=== PATIENT | male | born 1955 | race Caucasian/White ===

== ENCOUNTER 2022-07-20 14:42 | Emergency (ER) | payer MEDICARE, OTHER ==
[~2022-07-20] VITALS: Ht 172.7 cm; Wt 73.0 kg
[~2022-07-20 14:42] MED LIST: ASPI-325 PO; ATOR20TA50 PO; BENA10TA15 PO; CAR3125T PO; CIPR-173 PO; EMPA1TAB PO
[2022-07-20 15:43] VITALS: BP 145/62
[2022-07-20 15:53] LABS: Basophils # (auto) 0.1 10 ^3/uL (0-0.2); Basophils % (auto) 0.6 % (0.0-2.0); Eosinophils # (auto) 0.2 10 ^3/uL (0-0.8); Eosinophils % (auto) 2.3 % (0.0-7.0); Hematocrit 34.5 % (41.0-53.0); Hemoglobin 11.4 g/dL (13.5-17.5); Lymphocytes # (auto) 0.8 10 ^3/uL (0.4-5.4); Lymphocytes % (auto) 9.2 % (10.0-50.0); Mean Corpuscular Hemoglobin 29.8 pg (28.0-32.0); Mean Corpuscular Volume 90.2 fL (80.0-100.0); Monocytes # (auto) 0.6 10 ^3/uL (0-1.3); Monocytes % (auto) 7.1 % (0.0-12.0); Neutrophils # (auto) 7.3 10 ^3/uL (1.6-8.6); Neutrophils % (auto) 80.8 % (37.0-80.0); Nucleated Red Blood Cells % 0.1 %; Red Blood Cells 3.83 10^6/uL (4.5-5.90); Red Cell Distribution Width 16.8 % (11.8-14.3)
[2022-07-20 16:08] LABS: Albumin 3.4 g/dL (3.4-5.0); Calcium 9.1 mg/dL (8.5-10.1); Potassium 4.2 mmol/L (3.5-5.1)
[2022-07-20 16:11] LABS: BUN/Creatinine Ratio 18.5; Total Protein 6.6 g/dL (6.4-8.2)
[2022-07-20] MEDS ORDERED: NITROGLYCERIN 0.4 MG SL TAB SL ONE (17:30)
[2022-07-20] MEDS ORDERED: ENOXAPARIN SOD 80 MG/0.8ML SYRINGE SC ONE (17:30)
[2022-07-20] MEDS ORDERED: FUROSEMIDE 40 MG/4 ML VIAL IV ONE (17:30)
[2022-07-20 17:51] LABS: Urine Specific Gravity 1.033 (1.001-1.035)
[2022-07-20 17:52] LABS: Urine Blood 1+ /uL (Negative)
[2022-07-20] MEDS ORDERED: DEXTROSE (50%) 50ML SYRG IV PRN (19:30)
[2022-07-20] MEDS ORDERED: IOHEXOL 350 MG/ML 100ML IJ ONE (19:30)
[2022-07-20 20:02] LABS: Cholesterol 127 mg/dL (< 200)
[2022-07-20 20:05] LABS: HDL Cholesterol 38 mg/dL (40-59); LDL Cholesterol 86 mg/dL (< 100); Triglycerides 66 mg/dL (< 150)
[2022-07-20] MEDS ORDERED: ACCU-CHEK COMFORT CURVE STRIP VI SCH (22:00)
[2022-07-20] MEDS ORDERED: ATORVASTATIN 20 MG TAB PO SCH (22:00)
[2022-07-20] MEDS ORDERED: CARVEDILOL 3.125 MG TAB PO SCH (22:00)
[2022-07-20] MEDS ORDERED: InsuLIN REG 1unit/0.01ml Soln (100units/ml) SC SCH (22:00)
[2022-07-21] MEDS ORDERED: BENAZEPRIL HCL 10 MG TAB PO SCH (10:00)
[2022-07-21] MEDS ORDERED: ASPirin-EC 81 mg tab PO SCH (10:00)
== END 2022-07-20 20:26 | disposition left against medical advice (07) ==
LOC: ER 14:42
DX: I11.0 Hypertensive heart disease with heart failure (principal); I50.9 Heart failure, unspecified; I21.4 Non-ST elevation (NSTEMI) myocardial infarction
CPT/HCPCS: 36415; 71045; 80053; 80061; 81003; 83036; 83880; 84443; 84484; 85025; 85379; 93005; 96372; 96374; 99291; J1650; J1940; Q9967